=== PATIENT | female | born 1985 | race Caucasian/White ===

== ENCOUNTER 2017-04-26 12:37 | Emergency (ER) | payer OTHER ==
[2017-04-26 12:48] VITALS: BP 148/70; PULSE 98; TEMP 98; BMI 45.7
--- NOTE | 2017-04-26 13:38 | PDOC ---
History of Present Illness - General Chief Complaint: Injury Stated Complaint: HEADACHE Time Seen by Provider: 04/26/17 13:00 History Source: Patient Exam Limitations: No Limitations - History of Present Illness Initial Comments: 04/26/17 13:32 32 yr female with c/o pain to her left side of face after slip and fall on area rug at home hit her face on the wall. 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 pt has pain with opening her mouth. Pt applied ice has no bruising noted. Occurred: reports: this morning Pain Location: reports: face (left side ) Method of Injury: Yes: fall Past History - Past Medical History Allergies/Adverse Reactions: Allergies Allergy/AdvReac Type Severity Reaction Status Date / Time No Known Allergies Allergy Verified 04/26/17 12:48 Home Medications: Ambulatory Orders Alprazolam [Xanax] 1 mg PO DAILY 04/19/16 Bupropion HCl [Wellbutrin Xl -] 300 mg PO DAILY 04/19/16 Dextroamphetamine/Amphetamine [Adderall Xr 20 mg Capsule] 20 mg PO DAILY Temazepam [Restoril] 15 mg PO HS 04/26/17 Psychiatric Problems: Yes (anxiety) - Psycho/Social/Smoking Cessation Hx Anxiety: Yes Suicidal Ideation: No Smoking History: Never smoked Have you smoked in the past 12 months: No Information on smoking cessation initiated: No Hx Alcohol Use: No Drug/Substance Use Hx: No Substance Use Type: None Trauma Specific PMHX - Complaint Specific PMHX Arthritis: No Back Injury: No Neck Injury: No Hx Sacro Iliac Joint Dysfunction: No Review of Systems - Review of Systems Able to Perform ROS?: Yes Is the patient limited [place] proficient: No Constitutional: No: Symptoms Reported HEENTM: Yes: Symptoms Reported, See HPI, Ear Pain (left outer ear) Respiratory: No: Symptoms reported Cardiac (ROS): No: Symptoms Reported : No: Symptoms Reported Musculoskeletal: Yes: Symptoms Reported *Physical Exam - Vital Signs Last Vital Signs Temp Pulse Resp BP Pulse Ox 98.0 F 98 H 18 148/70 100 04/26/17 12:45 04/26/17 12:45 04/26/17 12:45 04/26/17 12:45 04/26/17 12:45 - Physical Exam General Appearance: Yes: Nourished, Appropriately Dressed HEENT: positive: EOMI, KETTY, Normal ENT Inspection, TMs Normal, Pharynx Normal, Other (TTP left TMJ no bruising or stepoff, no clicking of jaw) Neck: positive: Supple. negative: Tender Respiratory/Chest: positive: Lungs Clear, Normal Breath Sounds Cardiovascular: positive: Regular Rhythm, Regular Rate Musculoskeletal: positive: Normal Inspection Extremity: positive: Normal Capillary Refill, Normal Inspection, Normal Range of Motion Integumentary: positive: Normal Color, Dry, Warm. 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 all questions asked and answered at discharge. pt agrees with plan of care. *DC/Admit/Observation/Transfer Diagnosis at time of Disposition: Facial injury Qualifiers: Encounter type: initial encounter Qualified Code(s): S09.93XA - Unspecified injury of face, initial encounter - Discharge Dispostion Disposition: HOME Condition at time of disposition: Good - Referrals Referrals: Emily Wiley [Primary Care Provider] - - Patient Instructions Additional Instructions: ice every 2-3 hrs for 20 minutes to area of pain take motrin 600mg every 6hrs for pain follow with your doctor if any worsening symptoms
[2017-04-26] MEDS ORDERED: ACETAMINOPHEN 325 MG TABLET (FP) PO ONE (13:46)
[2017-04-26] MEDS ORDERED: ACETAMINOPHEN 325 MG TABLET (FP) ONE (13:48)
== END 2017-04-26 14:59 | disposition home or self-care (01) ==
LOC: JERFT 12:37
DX: S09.93XA Unspecified injury of face, initial encounter (principal); W18.09XA Striking against other object with subsequent fall, initial encounter; Y93.89 Activity, other specified; Y92.018 Other place in single-family (private) house as the place of occurrence of the external cause; F41.9 Anxiety disorder, unspecified
CPT/HCPCS: 70486-TC; 84703; 99281-25

== ENCOUNTER 2021-11-02 09:23 | Emergency (ER) | payer OTHER ==
[2021-11-02 09:40] VITALS: BP 125/65; PULSE 98; TEMP 97.2; BMI 41.4
[2021-11-02] MEDS ORDERED: morphine CARPU-JECT 4 MG/1 ML DISP.SYRIN IVPUSH ONE (11:38)
[2021-11-02 11:47] LABS: PH,URINE 5.5 (5.0-8.0); URINE APPEARANCE CLEAR; URINE BILIRUBIN NEGATIVE (NEGATIVE); URINE COLOR YELLOW; URINE GLUCOSE (UA) NEGATIVE (NEGATIVE); URINE KETONE TRACE (NEGATIVE); URINE LEUK ESTERASE NEGATIVE (NEGATIVE); URINE NITRITE NEGATIVE (NEGATIVE); URINE PROTEIN NEGATIVE (NEGATIVE); URINE UROBILINOGEN 0.2 mg/dL (0.2-1.0)
[2021-11-02] MEDS ORDERED: morphine SULFATE 4 MG/ML VIAL ONE (12:00)
[2021-11-02 12:23] LABS: BASO % 0.2 % (0-2.0); EOS % 1.2 % (0-4.5); HEMATOCRIT 40.3 % (32.4-45.2); HEMOGLOBIN 13.9 GM/dL (10.7-15.3); LYMPH % 30.8 % (8-40); MCH 28.9 pg (25.7-33.7); MCHC 34.5 g/dl (32.0-36.0); MEAN CELL VOLUME 83.9 fl (80-96); MONO % 7.8 % (3.8-10.2); PLATELET COUNT 251 10^3/uL (134-434); RDW 14.8 % (11.6-15.6)
[2021-11-02 12:40] LABS: CHLORIDE 93 mmol/L (98-107); SODIUM 137 mmol/L (136-145)
[2021-11-02 12:41] LABS: CALCIUM 10.4 mg/dL (8.5-10.1)
[2021-11-02 12:42] LABS: BLOOD UREA NITROGEN 14.4 mg/dL (7-18); CO2 37 mmol/L (21-32); GLUCOSE,RANDOM 87 mg/dL (74-106)
[2021-11-02 12:46] LABS: CREATININE 0.7 mg/dL (0.55-1.3); SGPT/ALT 30 U/L (13-61)
[2021-11-02 12:47] LABS: SGOT/AST 22 U/L (15-37)
[2021-11-02 12:48] LABS: ALK PHOS 70 U/L (45-117); ANION GAP 6 MMOL/L (8-16); BILIRUBIN,TOTAL 0.7 mg/dL (0.2-1); TOT PROT 7.9 g/dl (6.4-8.2)
[2021-11-02] MEDS ORDERED: POTASSIUM CHLORIDE TABS 20 MEQ TABLET.ER (FP) PO ONE ×2 (13:01→13:11)
[2021-11-02] MEDS ORDERED: ACETAMINOPHEN 1000 MG/100 ML BAG IVPB ONE (13:06)
[2021-11-02] MEDS ORDERED: KCL 10 MEQ IVPB 20 MEQ/200 ML INFUS.BAG IVPB ONE (13:11)
[2021-11-02] MEDS ORDERED: ACETAMINOPHEN INJECTION 100 ML IVPB ONE (13:11)
[2021-11-02] MEDS: KCL 10 MEQ IVPB 10 MEQ/100 ML INFUS.BAG IVPB SCH ×2 (13:18→15:56)
[2021-11-02 14:05] LABS: INR 1.21 (0.83-1.09); PROTHROMBIN TIME (PATIENT) 13.9 SEC (9.7-13.0)
[2021-11-02 14:08] LABS: ACTIVATED PTT 30.6 SECONDS (25.2-36.5)
[2021-11-02] MEDS ORDERED: KETOROLAC TROMETHAMINE 30 MG/1 ML VIAL IVPUSH ONE (16:59)
[2021-11-02] MEDS ORDERED: LIDOCAINE 5% TOPICAL PATCH TP ONE (16:59)
[2021-11-02] MEDS ORDERED: LIDOCAINE 5% TOPICAL PATCH ONE (17:09)
[2021-11-02] MEDS ORDERED: KETOROLAC TROMETHAMINE 30 MG/1 ML VIAL ONE (17:10)
[2021-11-02 19:11] LABS: CALCIUM 9.4 mg/dL (8.5-10.1)
[2021-11-02 19:12] LABS: BLOOD UREA NITROGEN 15.7 mg/dL (7-18)
[2021-11-02 19:15] LABS: CREATININE 0.7 mg/dL (0.55-1.3)
[2021-11-02] MEDS ORDERED: LIDOCAINE PATCH REMOVAL MC SCH (22:00)
== END 2021-11-02 19:30 | disposition home or self-care (01) ==
LOC: JER 09:23 → JERFT 09:23 → JER 19:30
PROC: 3E0333Z Introduction of Anti-inflammatory into Peripheral Vein, Percutaneous Approach (ICD-10-PCS; principal; 2021-11-02)
PROC: 3E0333Z Introduction of Anti-inflammatory into Peripheral Vein, Percutaneous Approach (ICD-10-PCS; 2021-11-02)
PROC: 3E033NZ Introduction of Analgesics, Hypnotics, Sedatives into Peripheral Vein, Percutaneous Approach (ICD-10-PCS; 2021-11-02)
PROC: 3E033GC Introduction of Other Therapeutic Substance into Peripheral Vein, Percutaneous Approach (ICD-10-PCS; 2021-11-02)
DX: M79.605 Pain in left leg (principal); I83.812 Varicose veins of left lower extremity with pain; M54.16 Radiculopathy, lumbar region
CPT/HCPCS: 36415; 71046-TC-FY; 72148-TC; 80048; 80053; 81003; 85025; 85610; 85730; 86850; 86900; 86901; 87086; 93005; 93010; 93971-TC; 99285-25; J0131

== ENCOUNTER 2022-03-18 10:14 | Emergency (ER) | payer OTHER ==
[2022-03-18 11:01] VITALS: BP 99/67; PULSE 101; TEMP 98.1; BMI 36.8
[2022-03-18] MEDS ORDERED: IBUPROFEN 600 MG TABLET (FP) PO ONE ×2 (11:21→11:52)
[2022-03-18] MEDS ORDERED: DIPHTH,PERTUSS(ACELL),TET 0.5 ML DISP.SYRIN IM ONE ×2 (11:22→11:52)
== END 2022-03-18 12:10 | disposition home or self-care (01) ==
LOC: JERFT 10:14
PROC: 3E0234Z Introduction of Serum, Toxoid and Vaccine into Muscle, Percutaneous Approach (ICD-10-PCS; principal; 2022-03-18)
DX: S90.852A Superficial foreign body, left foot, initial encounter (principal); W25.XXXA Contact with sharp glass, initial encounter
CPT/HCPCS: 73630-TC-LT; 90471; 90715; 99284-25

== ENCOUNTER 2022-03-27 04:20 | Day surgery (SDC) | payer OTHER ==
[2022-03-24 17:33] VITALS: BMI 36.2
[2022-03-27] MEDS ORDERED: LIDOCAINE HCL 2% 100 MG/5 ML DISP.SYRIN ONE (12:18)
[2022-03-27] MEDS ORDERED: PROPOFOL 20 ML ONE ×4 (12:19)
[2022-03-27] MEDS ORDERED: MIDAZOLAM HCL 2 MG/2 ML SINGLE DOSE VIAL ONE (12:19)
[2022-03-27] MEDS ORDERED: KETOROLAC TROMETHAMINE 30 MG/1 ML VIAL ONE (12:24)
[2022-03-27] MEDS ORDERED: DEXAMETHASONE SOD PHOSPHATE 4 MG/1 ML VIAL ONE (12:24)
[2022-03-27] MEDS ORDERED: ceFAZolin SODIUM 1 GM VIAL ONE (12:27)
[2022-03-27] MEDS ORDERED: ceFAZolin SODIUM 1 GM VIAL IVPB ONE (12:30)
[2022-03-27] MEDS ORDERED: LIDOCAINE HCL 2% (50ML VIAL) NR ONE (12:40)
[2022-03-27] MEDS ORDERED: PROMETHAZINE HCL 25 MG/1 ML VIAL IVPUSH PRN (13:04)
[2022-03-27] MEDS ORDERED: IBUPROFEN 800 MG/8 ML IJ IVPB PRN (13:04)
[2022-03-27] MEDS ORDERED: ONDANSETRON 4 MG/2 ML VIAL IVPUSH PRN (13:04)
[2022-03-27] MEDS ORDERED: ACETAMINOPHEN 325 MG TABLET (FP) PO PRN (13:04)
[2022-03-27] MEDS ORDERED: oxyCODONE HCL 5 MG TABLET PO PRN ×2 (13:04)
[2022-03-27] MEDS ORDERED: ACETAMINOPHEN INJECTION 100 ML IVPB ONE (13:08)
[2022-03-27] MEDS ORDERED: FENTANYL CITRATE/PF 50 MCG/ML VIAL ONE (13:09)
[2022-03-27] MEDS ORDERED: HYDROmorphone HCL CARPU-JECT 2 MG/1 ML DISP.SYRIN IVPUSH PRN ×2 (13:10)
[2022-03-27] MEDS ORDERED: LACTATED RINGERS SOLUTION 1,000 ML IV SCH (13:15)
[2022-03-27] MEDS ORDERED: ACETAMINOPHEN 1000 MG/100 ML BAG IVPB ONE (14:40)
[2022-03-27 16:16] VITALS: TEMP 97.9
[2022-03-27 16:27] VITALS: BP 94/60; PULSE 68
== END 2022-03-27 15:45 | disposition home or self-care (01) ==
LOC: JASU-SURG 04:20
PROVIDERS: ATTEND Podiatrist Foot & Ankle Surgery
PROC: 0JCR0ZZ Extirpation of Matter from Left Foot Subcutaneous Tissue and Fascia, Open Approach (ICD-10-PCS; principal; 2022-03-27 12:15)
DX: Z18.81 Retained glass fragments (principal)
CPT/HCPCS: 76000-TC-FY; 81025; 88300-TC; 94760

== ENCOUNTER 2022-08-31 10:11 | Emergency (ER) | payer OTHER ==
[2022-08-31 10:19] VITALS: RESP 18; TEMP 98.3; BMI 33.4
[2022-08-31] MEDS ORDERED: ALPRAZolam 1 MG TABLET PO ONE (11:41)
[2022-08-31] MEDS ORDERED: KETOROLAC TROMETHAMINE 30 MG/1 ML VIAL IM ONE (11:42)
[2022-08-31] MEDS ORDERED: ALPRAZolam 0.25 MG TABLET ONE (11:46)
[2022-08-31] MEDS ORDERED: KETOROLAC TROMETHAMINE 30 MG/1 ML VIAL ONE (11:46)
[2022-08-31 12:39] LABS: BASO % 0.4 % (0-2.0); EOS % 0.7 % (0-4.5); HEMATOCRIT 36.8 % (32.4-45.2); HEMOGLOBIN 12.5 GM/dL (10.7-15.3); MCH 28.2 pg (25.7-33.7); MEAN CELL VOLUME 82.9 fl (80-96); MEAN PLT VOLUME 7.7 fl (7.5-11.1); MONO % 6.3 % (3.8-10.2); NEUT % 60.6 % (42.8-82.8); PLATELET COUNT 293 10^3/uL (134-434); RBC 4.44 M/mm3 (3.60-5.2); RDW 21.2 % (11.6-15.6)
[2022-08-31 12:51] LABS: ALBUMIN 3.2 g/dl (3.4-5.0); BLOOD UREA NITROGEN 9.6 mg/dL (7-18); CALCIUM 8.5 mg/dL (8.5-10.1); CO2 28 mmol/L (21-32); GLUCOSE,RANDOM 73 mg/dL (74-106)
[2022-08-31 12:54] LABS: CREATININE 0.5 mg/dL (0.55-1.3); SGPT/ALT 43 U/L (13-61)
[2022-08-31 12:55] LABS: SGOT/AST 83 U/L (15-37)
[2022-08-31 12:56] LABS: BILIRUBIN,TOTAL 0.3 mg/dL (0.2-1)
[2022-08-31 12:57] LABS: ALK PHOS 65 U/L (45-117)
[2022-08-31 13:16] LABS: ANION GAP 5 MMOL/L (8-16)
[2022-08-31 13:57] VITALS: BP 119/73; PULSE 114
[2022-08-31 14:12] LABS: ANISOCYTOSIS 1+; MACROCYTOSIS 1+
[2022-08-31 14:26] LABS: CHLORIDE 110 mmol/L (98-107); SODIUM 144 mmol/L (136-145)
[2022-08-31 15:14] LABS: HIV INTERPRETATION NEGATIVE (NEGATIVE)
== END 2022-08-31 15:09 | disposition home or self-care (01) ==
LOC: JER 10:11
PROC: 3E0233Z Introduction of Anti-inflammatory into Muscle, Percutaneous Approach (ICD-10-PCS; principal; 2022-08-31)
DX: G50.1 Atypical facial pain (principal)
CPT/HCPCS: 36415; 70450-TC; 70486-TC; 80053; 84132; 84703; 85025; 86780; 87389; 87491; 87591; 99284-25

== ENCOUNTER 2022-11-14 02:06 | Emergency (ER) | payer OTHER ==
[2022-11-14 02:20] VITALS: BP 106/71; PULSE 93; RESP 16; TEMP 98.1; BMI 33.5
== END 2022-11-14 02:45 | disposition left against medical advice (07) ==
LOC: FER 02:06
DX: R06.02 Shortness of breath (principal); F41.9 Anxiety disorder, unspecified
CPT/HCPCS: 99281-25

== ENCOUNTER 2024-04-28 00:07 | Emergency (ER) | payer OTHER ==
[2024-04-28 00:12] VITALS: RESP 18; TEMP 97.4; BMI 25.3
[2024-04-28 00:46] VITALS: BP 108/73; PULSE 80
[2024-04-28 01:24] LABS: BASO % 0.3 % (0-2.0); EOS % 0.8 % (0-4.5); HEMATOCRIT 40.6 % (32.4-45.2); HEMOGLOBIN 13.7 GM/dL (10.7-15.3); LYMPH % 26.7 % (8-40); MCH 32.8 pg (25.7-33.7); MCHC 33.8 g/dl (32.0-36.0); MEAN CELL VOLUME 97.1 fl (80-96); MEAN PLT VOLUME 8.4 fl (7.5-11.1); MONO % 9.6 % (3.8-10.2); NEUT % 62.6 % (42.8-82.8); PLATELET COUNT 286 10^3/uL (134-434); RBC 4.18 M/mm3 (3.60-5.2); RDW 15.5 % (11.6-15.6); WHITE BLOOD COUNT 6.7 K/mm3 (4.0-10.0)
[2024-04-28] MEDS: LACTATED RINGERS SOLUTION 1000 ML INFUS.BAG IV ONE (01:27)
[2024-04-28 01:32] LABS: INR 0.86 (0.83-1.09); PROTHROMBIN TIME (PATIENT) 9.8 SEC (9.7-13.0)
[2024-04-28 01:35] LABS: ACTIVATED PTT 29.3 SECONDS (25.2-36.5); PH,URINE 5.5 (5.0-8.0); URINE APPEARANCE CLEAR; URINE BILIRUBIN NEGATIVE (NEGATIVE); URINE COLOR YELLOW; URINE GLUCOSE (UA) NEGATIVE (NEGATIVE); URINE KETONE NEGATIVE (NEGATIVE); URINE LEUK ESTERASE NEGATIVE (NEGATIVE); URINE NITRITE NEGATIVE (NEGATIVE); URINE PROTEIN NEGATIVE (NEGATIVE); URINE UROBILINOGEN 0.2 mg/dL (0.2-1.0)
[2024-04-28 01:50] LABS: POTASSIUM 3.8 mmol/L (3.5-5.1)
[2024-04-28 01:52] LABS: CALCIUM 8.6 mg/dL (8.5-10.1)
[2024-04-28 01:53] LABS: ALBUMIN 3.5 g/dl (3.4-5.0); BLOOD UREA NITROGEN 11.8 mg/dL (7-18)
[2024-04-28 01:56] LABS: CREATININE 0.6 mg/dL (0.55-1.3)
[2024-04-28 01:58] LABS: BILIRUBIN,TOTAL 0.2 mg/dL (0.2-1)
== END 2024-04-28 01:35 | disposition home or self-care (01) ==
LOC: JER 00:07
DX: R07.81 Pleurodynia (principal); W01.0XXA Fall on same level from slipping, tripping and stumbling without subsequent striking against object, initial encounter
CPT/HCPCS: 36415; 71045-TC-FY; 80053; 81003; 84484; 84703; 85025; 85610; 85730; 87086; 93005; 93010; 99285-25

== ENCOUNTER 2024-05-31 05:12 | Emergency (ER) | payer BC, OTHER ==
[2024-05-31 05:17] VITALS: BP 117/77; PULSE 112; RESP 18; TEMP 97.6; BMI 24.5
[2024-05-31 06:02] LABS: PH,URINE 6.5 (5.0-8.0); URINE APPEARANCE CLEAR; URINE BILIRUBIN NEGATIVE (NEGATIVE); URINE COLOR YELLOW; URINE GLUCOSE (UA) NEGATIVE (NEGATIVE); URINE KETONE NEGATIVE (NEGATIVE); URINE LEUK ESTERASE NEGATIVE (NEGATIVE); URINE NITRITE NEGATIVE (NEGATIVE); URINE PROTEIN NEGATIVE (NEGATIVE); URINE UROBILINOGEN 0.2 mg/dL (0.2-1.0)
[2024-05-31] MEDS ORDERED: LIDOCAINE 4% PATCH TP ONE (06:03)
[2024-05-31] MEDS: LIDOCAINE 4% PATCH TP ONE (06:10)
[2024-05-31 06:26] LABS: HCG,QUALITATIVE URINE Negative
[2024-05-31] MEDS ORDERED: KETOROLAC TROMETHAMINE 30 MG/1 ML VIAL ONE (06:45)
[2024-05-31] MEDS: KETOROLAC TROMETHAMINE 30 MG/1 ML VIAL IM ONE (06:50)
[2024-05-31 11:30] LABS: SYPHILIS W/ RPR CONF NON-REACTIVE (NONREACTIVE)
[2024-05-31 11:58] LABS: HIV INTERPRETATION NEGATIVE (NEGATIVE)
== END 2024-05-31 06:50 | disposition home or self-care (01) ==
LOC: JER 05:12
PROC: 3E0133Z Introduction of Anti-inflammatory into Subcutaneous Tissue, Percutaneous Approach (ICD-10-PCS; principal; 2024-05-31)
DX: R10.9 Unspecified abdominal pain (principal); R30.0 Dysuria; R00.0 Tachycardia, unspecified; F41.9 Anxiety disorder, unspecified; M54.9 Dorsalgia, unspecified; G89.29 Other chronic pain
CPT/HCPCS: 36415; 81003; 84703; 86632; 86780; 87086; 87389; 99284-25